=== PATIENT | male | born 1995 | race Caucasian/White ===

== ENCOUNTER 2016-12-05 02:02 | Emergency (ER) | payer BC, OTHER ==
[2016-12-05 02:07] VITALS: RESP 16; TEMP 98.2
[2016-12-05] MEDS ORDERED: KETOROLAC 60 MG/2 ML VIAL IM STA (02:28)
[2016-12-05] MEDS ORDERED: ORPHENADRINE 30 MG/ML 2 ML VIAL IM STA (02:28)
--- NOTE | 2016-12-05 02:33 | ED ---
General Adult HPI - General Chief complaint: Back Pain/Injury Stated complaint: BACK PAIN Time Seen by Provider: 12/05/16 02:20 Source: patient, RN notes reviewed Mode of arrival: ambulatory Limitations: no limitations - History of Present Illness Initial comments: 21-year-old male presents to the emergency Department chief complaint of low back pain. Patient states that he has had this low back pain started today. Patient states he stood up to get up and he developed the pain. Patient states it radiates from his right leg. 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 Patient states he is no loss by bladder function with this. Patient was concerned due to his pains without that he should be evaluated.Patient denies any recent fever , chills, shortness of breath, chest pain, abdominal pain, nausea vomiting, numbness or tingling, dysuria or hematuria, constipation or diarrhea, headaches or visual changes, or any other current symptoms. - Related Data Home Medications Medication Instructions Recorded Confirmed Amino Acids Tablets 3 tab PO DAILY 03/24/16 12/05/16 Estrogen Tablets 1 tab PO DAILY 03/24/16 12/05/16 Testosterone Tablets 1 tab PO DAILY 03/24/16 12/05/16 Previous Rx's Medication Instructions Recorded Ibuprofen [Motrin] 600 mg PO Q6HR PRN #20 tab 12/05/16 Orphenadrine [Norflex] 100 mg PO Q12H #10 tablet.er 12/05/16 predniSONE 50 mg PO DAILY #5 tab 12/05/16 Allergies Allergy/AdvReac Type Severity Reaction Status Date / Time No Known Allergies Allergy Verified 12/05/16 02:06 Review of Systems ROS Statement: Those systems with pertinent positive or pertinent negative responses have been documented in the HPI. ROS Other: All systems not noted in ROS Statement are negative. Past Medical History Past Medical History: No Reported History History of Any Multi-Drug Resistant Organisms: None Reported Past Surgical History: No Surgical Hx Reported Past Psychological History: No Psychological Hx Reported Smoking Status: Never smoker Past Alcohol Use History: None Reported Past Drug Use History: None Reported General Exam - General Exam Comments Initial Comments: General: The patient is awake and alert, in no distress, and does not appear acutely ill. Eye: Pupils are equal. Ears, nose, mouth and throat: There are moist mucous membranes. Neck: The neck is supple, there is no tenderness. Cardiovascular: There is a regular rate and rhythm. No murmur, rub or gallop is appreciated. Respiratory: Lungs are clear to auscultation, respirations are non-labored, breath sounds are equal. No wheezes, stridor, rales, or rhonchi. Back: There is no tenderness to palpation in the midline. Positive straight leg raise on the right There is no obvious deformity. No rashes noted. Musculoskeletal: Normal ROM, no tenderness, There is no pedal edema. There is no calf tenderness or swelling. Sensation intact. Pulses equal bilaterally 2+. Neurological: CN II-XII intact, There are no obvious motor or sensory deficits. Coordination appears grossly intact. Speech is normal. Skin: Skin is warm and dry and no rashes or lesions are noted. Psychiatric: Cooperative, appropriate mood & affect, normal judgment. Limitations: no limitations Course Vital Signs 12/05/16 02:05 Temperature 98.2 F Pulse Rate 65 Respiratory 16 Rate Blood Pressure 149/82 O2 Sat by Pulse 97 Oximetry Medical Decision Making - Medical Decision Making 21-year-old male presents for appears to be sciatica type pain. This and we did give the patient a prescription for steroids muscle relaxers and Motrin for home. We discussed follow-up return parameters and all his questions. He stated that he understood any significant plan. This time he will be discharged home. - Radiology Data Radiology results: report reviewed, image reviewed Disposition Clinical Impression: Sciatica, right side Disposition: HOME SELF-CARE Condition: Stable Instructions: Sciatica (ED) Additional Instructions: Please use medication as discussed. Please follow up with family doctor if symptoms have not improved over the next two days. Please return to the emergency room if your symptoms increase or worsen or for any other concerns. Prescriptions: Ibuprofen [Motrin] 600 mg PO Q6HR PRN #20 tab PRN Reason: Pain Orphenadrine [Norflex] 100 mg PO Q12H #10 tablet.er predniSONE 50 mg PO DAILY #5 tab Referrals: Jimmy Ornelas MD [Primary Care Provider] - 1-2 days Time of Disposition: 03:05
--- NOTE | 2016-12-05 03:01 | XR ---
EXAM: XR Lumbar Spine, 2 or 3 Views CLINICAL HISTORY: Reason: Pain TECHNIQUE: Frontal and lateral views of the lumbar spine. COMPARISON: 03/24/2016 FINDINGS: Vertebrae: Normal mineralization and alignment without evidence of acute fracture or vertebral body height loss. Disc spaces: No acute findings. No significant narrowing. Soft tissues: Unremarkable. IMPRESSION: No acute findings.
[2016-12-05 03:09] VITALS: BP 101/59; PULSE 70
== END 2016-12-05 03:08 | disposition home or self-care (01) ==
LOC: EC 02:02
DX: M54.31 Sciatica, right side (principal); Z79.899 Other long term (current) drug therapy
CPT/HCPCS: 72100; 99283; 96372 ×2; J2360; J1885

== ENCOUNTER 2017-12-15 23:07 | Emergency (ER) | payer BC ==
--- NOTE | 2017-12-15 23:10 | ED ---
General Adult HPI - General Stated complaint: Vomiting Time Seen by Provider: 12/15/17 23:10 - History of Present Illness Initial comments: This is a previously healthy 22-year-old male who presents the emergency department today via EMS for evaluation of chest pain and vomiting. Patient reports that he was in his usual state of health throughout the day today, this evening he walked out to his truck and was cleaning it when he began experiencing stabbing left-sided chest pain. He was able to ambulate back into his house where he had multiple episodes of nonbloody nonbilious in the sound of the vomiting woke his mother who came to the restroom and found him laying on the floor complaining of chest pain. She was unable to lift him so she called 911 for transport to the ER. They found him resting comfortably complaining of left-sided chest pain. He had an EKG with no apparent abnormalities, IV access was obtained and 4 mg of IV Zofran was given and was transported to the ER for further evaluation. Patient denies any recent illness, fevers or chills. He denies any known cardiac disease. No family history of early cardiac disease or connective tissue diseases. Patient denies any drug use. He is a nonsmoker. 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 - Related Data Home Medications Medication Instructions Recorded Confirmed Amino Acids Tablets 3 tab PO DAILY 03/24/16 12/05/16 Estrogen Tablets 1 tab PO DAILY 03/24/16 12/05/16 Testosterone Tablets 1 tab PO DAILY 03/24/16 12/05/16 Previous Rx's Medication Instructions Recorded Ibuprofen [Motrin] 600 mg PO Q6HR PRN #20 tab 12/05/16 Orphenadrine [Norflex] 100 mg PO Q12H #10 tablet.er 12/05/16 predniSONE 50 mg PO DAILY #5 tab 12/05/16 Allergies Allergy/AdvReac Type Severity Reaction Status Date / Time No Known Allergies Allergy Verified 12/15/17 23:16 Review of Systems ROS Statement: Those systems with pertinent positive or pertinent negative responses have been documented in the HPI. ROS Other: All systems not noted in ROS Statement are negative. Past Medical History Past Medical History: No Reported History History of Any Multi-Drug Resistant Organisms: None Reported Past Surgical History: No Surgical Hx Reported Past Psychological History: No Psychological Hx Reported Smoking Status: Never smoker Past Alcohol Use History: None Reported Past Drug Use History: None Reported General Exam Limitations: no limitations General appearance: alert Head exam: Present: atraumatic, normocephalic Eye exam: Present: normal appearance, PERRL ENT exam: Present: normal exam Neck exam: Present: normal inspection, other (no carotid bruits). Absent: lymphadenopathy Respiratory exam: Present: normal lung sounds bilaterally. Absent: respiratory distress Cardiovascular Exam: Present: regular rate, normal rhythm, systolic murmur GI/Abdominal exam: Present: soft, normal bowel sounds. Absent: distended, tenderness, guarding, rebound, rigid, bruit, pulsatile mass Rectal exam: Present: deferred Extremities exam: Present: normal inspection, normal capillary refill. Absent: pedal edema Back exam: Present: normal inspection Neurological exam: Present: alert, oriented X3 Psychiatric exam: Present: flat affect Skin exam: Present: warm, dry Course Vital Signs 12/15/17 12/16/17 23:13 02:02 Temperature 98.3 F Pulse Rate 85 58 L Respiratory 18 16 Rate Blood Pressure 169/89 136/67 O2 Sat by Pulse 97 98 Oximetry EKG Findings - EKG Comments: EKG Findings:: EKG obtained at 12:39 AM. Rate is 61, rhythm is sinus, normal axis, normal intervals, there are no acute ST elevations or depressions. No evidence of acute ischemia or infarction. Medical Decision Making - Medical Decision Making Patient arrived via EMS, evaluated the patient upon arrival On my initial evaluation the patient was reclined in the bed, his eyes were closed, he appeared to be in no acute distress. I asked the patient his name and he nodded yes when asked him to describe to me why he was here today, patient squinted his eyes but did not answer. I waited approximately 15 seconds and again asked him. The patient seemed agitated but stated that he had severe severe chest pain. I had to ask the patient multiple times to elaborate as he was giving very short answers and seemed irritated. Patient was able to remove his sweatshirt and close for examination. Patient is not tachycardic, mildly hypertensive, afebrile. He is well- appearing. He has nonreproducible chest pain. He had vomiting prior to arrival but that has resolved. Patient has strong radial pulses bilaterally - no risk factors for cardiovascular disease. Labs reveal a mildly elevated bilirubin, a right upper quadrant abdominal ultrasound was obtained with no acute findings. Patient reported feeling significantly better after IV fluids. At this time and I'll have a definitive etiology for the pain and vomiting however the patient has resolved and workup in the ER has ruled out any acute cardiac, pulmonary or intrathoracic emergency. Patient is stable, able to ambulate independently and here for discharge home. Patient was advised to stay home from work tomorrow and relax. Questions pertaining care were answered best my ability patient was discharged home in stable condition. - Lab Data Result diagrams: 12/15/17 23:56 12/15/17 23:56 Lab Results 12/15/17 12/15/17 12/15/17 Range/Units 23:56 23:56 23:56 WBC 7.0 (3.8-10.6) k/uL RBC 4.67 (4.30-5.90) m/uL Hgb 14.2 (13.0-17.5) gm/dL Hct 42.1 (39.0-53.0) % MCV 90.1 (80.0-100.0) fL MCH 30.3 (25.0-35.0) pg MCHC 33.7 (31.0-37.0) g/dL RDW 12.8 (11.5-15.5) % Plt Count 173 (150-450) k/uL Neutrophils % 71 % Lymphocytes % 22 % Monocytes % 5 % Eosinophils % 1 % Basophils % 0 % Neutrophils # 4.9 (1.3-7.7) k/uL Lymphocytes # 1.5 (1.0-4.8) k/uL Monocytes # 0.3 (0-1.0) k/uL Eosinophils # 0.1 (0-0.7) k/uL Basophils # 0.0 (0-0.2) k/uL PT (9.0-12.0) sec INR (<1.2) APTT (22.0-30.0) sec D-Dimer (<0.60) mg/L FEU Sodium 139 (137-145) mmol/L Potassium 4.0 (3.5-5.1) mmol/L Chloride 107 (98-107) mmol/L Carbon Dioxide 25 (22-30) mmol/L Anion Gap 7 mmol/L BUN 17 (9-20) mg/dL Creatinine 0.90 (0.66-1.25) mg/dL Est GFR (CKD-EPI)AfAm >90 (>60 ml/min/1.73 sqM) Est GFR (CKD-EPI)NonAf >90 (>60 ml/min/1.73 sqM) Glucose 98 (74-99) mg/dL Calcium 8.8 (8.4-10.2) mg/dL Magnesium 1.8 (1.6-2.3) mg/dL Total Bilirubin 2.2 H (0.2-1.3) mg/dL AST 30 (17-59) U/L ALT 25 (21-72) U/L Alkaline Phosphatase 50 (38-126) U/L Total Creatine Kinase 103 (55-170) U/L CK-MB (CK-2) 1.0 (0.0-2.4) ng/mL CK-MB (CK-2) Rel Index 1.0 Troponin I <0.012 (0.000-0.034) ng/mL Total Protein 6.8 (6.3-8.2) g/dL Albumin 4.3 (3.5-5.0) g/dL Lipase 68 (23-300) U/L Urine Color Urine Appearance (Clear) Urine pH (5.0-8.0) Ur Specific [place] (1.001-1.035) Urine Protein (Negative) Urine Glucose (UA) (Negative) Urine Ketones (Negative) Urine Blood (Negative) Urine Nitrite (Negative) Urine Bilirubin (Negative) Urine Urobilinogen (<2.0) mg/dL Ur Leukocyte Esterase (Negative) Urine RBC (0-5) /hpf Urine WBC (0-5) /hpf Calcium Oxalate Crystal (None) /hpf Urine Mucus (None) /hpf 12/15/17 12/16/17 Range/Units 23:56 00:01 WBC (3.8-10.6) k/uL RBC (4.30-5.90) m/uL Hgb (13.0-17.5) gm/dL Hct (39.0-53.0) % MCV (80.0-100.0) fL MCH (25.0-35.0) pg MCHC (31.0-37.0) g/dL RDW (11.5-15.5) % Plt Count (150-450) k/uL Neutrophils % % Lymphocytes % % Monocytes % % Eosinophils % % Basophils % % Neutrophils # (1.3-7.7) k/uL Lymphocytes # (1.0-4.8) k/uL Monocytes # (0-1.0) k/uL Eosinophils # (0-0.7) k/uL Basophils # (0-0.2) k/uL PT 11.2 (9.0-12.0) sec INR 1.2 H (<1.2) APTT 23.2 (22.0-30.0) sec D-Dimer <0.17 (<0.60) mg/L FEU Sodium (137-145) mmol/L Potassium (3.5-5.1) mmol/L Chloride (98-107) mmol/L Carbon Dioxide (22-30) mmol/L Anion Gap mmol/L BUN (9-20) mg/dL Creatinine (0.66-1.25) mg/dL Est GFR (CKD-EPI)AfAm (>60 ml/min/1.73 sqM) Est GFR (CKD-EPI)NonAf (>60 ml/min/1.73 sqM) Glucose (74-99) mg/dL Calcium (8.4-10.2) mg/dL Magnesium (1.6-2.3) mg/dL Total Bilirubin (0.2-1.3) mg/dL AST (17-59) U/L ALT (21-72) U/L Alkaline Phosphatase (38-126) U/L Total Creatine Kinase (55-170) U/L CK-MB (CK-2) (0.0-2.4) ng/mL CK-MB (CK-2) Rel Index Troponin I (0.000-0.034) ng/mL Total Protein (6.3-8.2) g/dL Albumin (3.5-5.0) g/dL Lipase (23-300) U/L Urine Color Yellow Urine Appearance Clear (Clear) Urine pH 5.5 (5.0-8.0) Ur Specific [place] 1.027 (1.001-1.035) Urine Protein 1+ H (Negative) Urine Glucose (UA) Negative (Negative) Urine Ketones Negative (Negative) Urine Blood Negative (Negative) Urine Nitrite Negative (Negative) Urine Bilirubin Negative (Negative) Urine Urobilinogen 3.0 (<2.0) mg/dL Ur Leukocyte Esterase Negative (Negative) Urine RBC <1 (0-5) /hpf Urine WBC 1 (0-5) /hpf Calcium Oxalate Crystal Rare H (None) /hpf Urine Mucus Few H (None) /hpf Disposition Clinical Impression: Biliary colic Disposition: HOME SELF-CARE Condition: Good Instructions: Chest Pain (ED), Abdominal Pain (ED) Is patient prescribed a controlled substance at d/c from ED?: No Referrals: Jimmy Ornelas MD [Primary Care Provider] - 1-2 days Time of Disposition: 01:58
[2017-12-15 23:16] VITALS: TEMP 98.3
[2017-12-15] MEDS ORDERED: SODIUM CHLORIDE 0.9% 500 ML IV STA (23:29)
[2017-12-15] MEDS ORDERED: MORPHINE SULFATE 4 MG/ML SYRINGE IVP STA (23:36)
--- NOTE | 2017-12-16 | XR ---
EXAMINATION TYPE: XR chest 2V DATE OF EXAM: 12/15/2017 COMPARISON: 03/24/2016 HISTORY: Chest pain TECHNIQUE: Frontal and lateral views of the chest are obtained. FINDINGS: Heart and mediastinum are normal. Lungs are clear. Diaphragm is normal. Bony thorax is int act. IMPRESSION: Normal chest. No change.
[2017-12-16 00:07] LABS: Basophils % (A) 0 %; Eosinophils # (A) 0.1 k/uL (0-0.7); Eosinophils % (A) 1 %; HCT 42.1 % (39.0-53.0); HGB 14.2 gm/dL (13.0-17.5); Lymphocytes # (A) 1.5 k/uL (1.0-4.8); Lymphocytes % (A) 22 %; MCH 30.3 pg (25.0-35.0); MCHC 33.7 g/dL (31.0-37.0); MCV 90.1 fL (80.0-100.0); Mean Platelet Volume 7.4; Monocytes # (A) 0.3 k/uL (0-1.0); Monocytes % (A) 5 %; Neutrophils # (A) 4.9 k/uL (1.3-7.7); Neutrophils % (A) 71 %; Platelet Count 173 k/uL (150-450); RBC 4.67 m/uL (4.30-5.90); RDW 12.8 % (11.5-15.5)
[2017-12-16 00:15] LABS: Albumin 4.3 g/dL (3.5-5.0); Anion Gap 7 mmol/L; Calcium 8.8 mg/dL (8.4-10.2); Carbon Dioxide 25 mmol/L (22-30); Chloride 107 mmol/L (98-107); Lipase 68 U/L (23-300); Sodium 139 mmol/L (137-145); Total Bilirubin 2.2 mg/dL (0.2-1.3)
[2017-12-16 00:16] LABS: ALT 25 U/L (21-72); AST 30 U/L (17-59); Alkaline Phosphatase 50 U/L (38-126); Blood Urea Nitrogen 17 mg/dL (9-20); Glucose 98 mg/dL (74-99); Magnesium 1.8 mg/dL (1.6-2.3); Total Protein 6.8 g/dL (6.3-8.2)
[2017-12-16 00:21] LABS: Appearance,Urine Clear (Clear); Bilirubin,Urine Negative (Negative); Blood,Urine Negative (Negative); Calcium Oxalate Crystals,Urine Rare /hpf; Color,Urine Yellow; Glucose,Urine (UA) Negative (Negative); Ketones,Urine Negative (Negative); Leukocyte Esterase,Urine Negative (Negative); Mucus,Urine Few /hpf; Nitrite,Urine Negative (Negative); PH, Urine 5.5 (5.0-8.0); Protein,Urine 1+ (Negative); RBC,Urine <1 /hpf (0-5); Specific Gravity,Urine 1.027 (1.001-1.035); WBC,Urine 1 /hpf (0-5)
[2017-12-16 00:27] LABS: D-Dimer <0.17 mg/L FEU (<0.60); INR 1.2 (<1.2); Partial Thromboplastin Time 23.2 sec (22.0-30.0); Prothrombin Time 11.2 sec (9.0-12.0)
[2017-12-16 00:28] LABS: Creatine Kinase 103 U/L (55-170)
[2017-12-16 00:42] LABS: Troponin I <0.012 ng/mL (0.000-0.034)
--- NOTE | 2017-12-16 01:18 | US ---
EXAMINATION TYPE: US gallbladder DATE OF EXAM: 12/16/2017 COMPARISON: NONE CLINICAL HISTORY: Pain. Pain, nausea and vomiting.Exam limitations due to overlying bowel gas. EXAM MEASUREMENTS: Liver Length: 13.8 cm Gallbladder Wall: 0.27 cm CBD: 0.28 cm Right Kidney: 9.8 x 4.1 x 4.6 cm Pancreas: Obscured by bowel gas Liver: wnl Gallbladder: wnl Evidence for sonographic Gustafson's sign: No CBD: wnl Right Kidney: wnl IMPRESSION: No gallstones or dilated ducts.
[2017-12-16 02:02] VITALS: BP 136/67; PULSE 58; RESP 16
== END 2017-12-16 02:05 | disposition home or self-care (01) ==
LOC: EC 23:07
DX: K80.50 Calculus of bile duct without cholangitis or cholecystitis without obstruction (principal); I10 Essential (primary) hypertension; R01.1 Cardiac murmur, unspecified; R79.89 Other specified abnormal findings of blood chemistry; Z79.899 Other long term (current) drug therapy
CPT/HCPCS: 36415; 93005; 85379; 80053; 82550; 82553; 83690; 83735; 84484; 85025; 85610; 85730; 81001; 71046; 76705; 99285; 96374; 96361; J2270